=== PATIENT | female | born 1975 | race Caucasian/White ===

== ENCOUNTER 2017-02-09 09:42 | Emergency (ER) | payer BC ==
[2017-02-09 10:26] VITALS: BP 130/78
--- NOTE | 2017-02-09 11:23 | RAD ---
INDICATION: Left middle finger injury. TECHNIQUE: 3 views of the left middle finger were obtained. FINDINGS: There is soft tissue swelling present. There is a small nondisplaced volar plate fracture present at the base of the middle phalanx. Joint spaces appear maintained. IMPRESSION: NONDISPLACED VOLAR PLATE FRACTURE BASE OF THE MIDDLE PHALANX.
--- NOTE | 2017-02-09 12:41 | UC ---
Hand/Wrist HPI - HPI Summary HPI Summary: FENCING INJURY A MONTH AGO HIT WITH SWORD ON LEFT MIDDLE FINGER (NO PUNCTURE OR SLICING). IMMEDIATE SWELLING AND BRUISING AFTER INJURY. SWELLING HAS RESOLVED SINCE INJURY, HOWEVER FINGER STILL PAINFUL WITH FLEXING. 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 Hx Last Menstrual Period: IUD-DOESN'T GET Onset/Duration: Sudden Onset, Lasting Weeks, Still Present Severity Initially: Moderate Severity Currently: Mild Pain Intensity: 3 Pain Scale Used: 0-10 Numeric Character Of Pain: Dull, Aching Aggravating Factor(s): Flexion, Extension Alleviating: Nothing Associated Signs And Symptoms: Positive: Negative Related History: Dominant Hand Right - Allergies/Home Medications Allergies/Adverse Reactions: Allergies Allergy/AdvReac Type Severity Reaction Status Date / Time No Known Allergies Allergy Verified 02/09/17 10:22 Home Medications: Home Medications Fexofenadine (NF) [Maria Guadalupe (NF)] 1 tab PO DAILY 02/09/17 [History Confirmed ] Pseudoephedrine TAB* [Sudafed TAB*] 1 tab PO 02/09/17 [History] PMH/Surg Hx/FS Hx/Imm Hx Previously Healthy: Yes Cancer History Of: Denies: Breast Cancer - Surgical History Surgical History: Yes Surgery Procedure, Year, and Place: LATERAL RELEASE LEFT KNEE - Family History Known Family History: Negative: Blood Disorder - Social History Occupation: Employed Full-time Lives: With Family Alcohol Use: Occasionally Alcohol Amount: EVERY TWO WKS Substance Use Type: None Smoking Status (MU): Never Smoked Tobacco Review of Systems Constitutional: Negative Skin: Bruising - LEFT MIDDLE FINGER Eyes: Negative ENT: Negative Respiratory: Negative Cardiovascular: Negative Gastrointestinal: Negative Genitourinary: Negative Motor: Negative Neurovascular: Negative Musculoskeletal: Arthralgia, Edema, Myalgia Neurological: Negative Psychological: Negative All Other Systems Reviewed And Are Negative: Yes Physical Exam Triage Information Reviewed: Yes Appearance: Well-Appearing, No Pain Distress, Well-Nourished Vital Signs: Initial Vital Signs Temp 98.4 F 02/09/17 10:23 Pulse 99 02/09/17 10:23 Resp 18 02/09/17 10:23 BP 130/78 02/09/17 10:23 Pulse Ox 100 02/09/17 10:23 Vital Signs Reviewed: Yes Eye Exam: Normal ENT Exam: Normal ENT: Positive: Normal ENT inspection, Hearing grossly normal, TMs normal Dental Exam: Normal Neck exam: Normal Respiratory Exam: Normal Respiratory: Positive: Chest non-tender, Lungs clear, Normal breath sounds, No respiratory distress, No accessory muscle use Cardiovascular Exam: Normal Cardiovascular: Positive: RRR, No Murmur, Pulses Normal Abdominal Exam: Normal Musculoskeletal Exam: Normal Musculoskeletal: Positive: Strength Intact - LEFT MIDDLE FINGER SWOLLEN BRUISING., ROM Limited @ - LEFT MIDDLE FINGER SWOLLEN, Edema @ Neurological Exam: Normal Psychological Exam: Normal Psychological: Positive: Normal Response To Family Skin Exam: Normal Hand/Wrist Course/Dx - Differential Dx/Diagnosis Differential Diagnosis/HQI/PQRI: Fracture, Sprain, Strain Provider Diagnoses: CLOSED NONDISPLACED VOLAR PLATE FRACTURE OF BASE OF LEFT MIDDLE PHALANX. Discharge - Discharge Plan Condition: Stable Disposition: HOME Patient Education Materials: Finger Fracture (ED) Referrals: Skip Rosales MD [Medical Doctor] - Aisha Paniagua MD [Primary Care Provider] -
== END 2017-02-09 11:58 | disposition home or self-care (01) ==
LOC: UCEAST 09:42
DX: S62.643A Nondisplaced fracture of proximal phalanx of left middle finger, initial encounter for closed fracture (principal)
CPT/HCPCS: 73140; 99212; G0463